=== PATIENT | male | born 1990 | race Caucasian/White ===

== ENCOUNTER 2018-09-06 20:17 | Emergency (ER) | payer OTHER ==
[2018-09-06] MEDS: DIPHTH/TET/ACEL PERTUSS (ADULT) 0.5 ML VIAL IM* (22:30)
[2018-09-06] MEDS: KETOROLAC 30 MG INJ IM (22:30)
[2018-09-06] MEDS: LIDOCAINE 1% (MDV) 20 ML INJ SC (22:41)
== END 2018-09-06 22:46 | disposition home or self-care (01) ==
LOC: FTE 20:17
DX: R51 Headache (principal); F07.81 Postconcussional syndrome; R40.2142 Coma scale, eyes open, spontaneous, at arrival to emergency department; R40.2252 Coma scale, best verbal response, oriented, at arrival to emergency department; R40.2362 Coma scale, best motor response, obeys commands, at arrival to emergency department; Z23 Encounter for immunization
CPT/HCPCS: 90471; 90715; 96372; 99284-25